=== PATIENT | female | born 1985 | race Caucasian/White ===

== ENCOUNTER → 2019-04-14 | Outpatient (CLI) | payer BC ==
[~2019-04-14] MED LIST: Amoxicillin500 MG PO; BC PILL; CYCL10 PO; HYDACE5325 PO; IBUP600 PO; MULVITMINA PO; Norco 5-325 Ta1 EACH PO; PNV-SELECT TAB1 EACH PO; Peridex480 ML UD; TRAACE PO; Zantac150 MG
== END | disposition home or self-care (01) ==
LOC: LAB 16:18 → LAB SHORT 16:18
DX: O30.009 Twin pregnancy, unspecified number of placenta and unspecified number of amniotic sacs, unspecified trimester (principal)
CPT/HCPCS: 87081; 87653

== ENCOUNTER 2019-04-26 15:20 | Inpatient (IN) | payer BC ==
[~2019-04-26] VITALS: Ht 162.6 cm; Wt 83.1 kg
[~2019-04-26 15:20] MED LIST changes: -PNV-SELECT TAB1 EACH PO; -Zantac150 MG
[2019-04-26 15:51] LABS: BASOPHILS ABSOLUTE AUTO 0.03 K/mm3 (0.00-0.23); BASOPHILS PERCENT AUTO 0 % (0-2); EOSINOPHILS ABSOLUTE AUTO 0.09 K/mm3 (0.00-0.68); EOSINOPHILS PERCENT AUTO 1 % (0-6); Hematocrit 37.8 % (33.0-51.0); Hemoglobin 12.3 g/dL (11.5-16.0); IMMATURE GRAN ABSOLUTE AUTO 0.03 K/mm3 (0.00-0.10); IMMATURE GRAN PERCENT AUTO 0 % (0-1); LYMPHOCYTES ABSOLUTE AUTO 1.78 K/mm3 (0.84-5.20); LYMPHOCYTES PERCENT AUTO 23 % (21-46); MONOCYTES ABSOLUTE AUTO 0.46 K/mm3 (0.16-1.47); MONOCYTES PERCENT AUTO 6 % (4-13); Mean Corpuscular HGB 30.3 pg (26.0-34.0); Mean Corpuscular HGB Conc 32.5 g/dL (31.5-36.5); Mean Corpuscular Volume 93 fL (80-100); Mean Platelet Volume 12.2 fL (9.1-12.4); NEUTROPHILS ABSOLUTE AUTO 5.46 K/mm3 (1.96-9.15); NEUTROPHILS PERCENT AUTO 70 % (41-73); Platelet Count 165 K/mm3 (150-400); RDW Coefficient Variation 18.5 % (11.7-14.2); RDW Standard Deviation 63.2 fL (35.1-46.3); Red Blood Cell Count 4.06 M/mm3 (3.80-5.20); White Blood Cell Count 7.85 K/mm3 (4.00-11.30)
[2019-04-26] MEDS ORDERED: PNV-SELECT TAB1 EACH PO (15:56)
[2019-04-26] MEDS ORDERED: Zantac150 MG (15:57)
[2019-04-27 06:02] LABS: Hematocrit 36.3 % (33.0-51.0); Hemoglobin 11.7 g/dL (11.5-16.0); Mean Corpuscular HGB Conc 32.2 g/dL (31.5-36.5); Mean Corpuscular Volume 93 fL (80-100); Mean Platelet Volume 12.6 fL (9.1-12.4); Platelet Count 136 K/mm3 (150-400); RDW Coefficient Variation 18.4 % (11.7-14.2); RDW Standard Deviation 61.9 fL (35.1-46.3); White Blood Cell Count 14.31 K/mm3 (4.00-11.30)
--- NOTE | 2019-04-27 10:50 | NUR ---
RN in room to assist pt to get baby B to breast. Nb sleepy, placed skin to skin. While there, RN assisted and showed pt how to manually express colostrum. RN noted red tinged colostrum from both breasts. Consulted with BONY, who states it is ok breastfeed. Will continue to monitor.
--- NOTE | 2019-04-27 15:42 | NUR ---
Pt in nursery visiting nb. Pt continuing to have red tinged colostrum from both breast. Lisa Gould RN notified and will consult with pt. Pt reassured that this is ok and is ok to breastfeed.
--- NOTE | 2019-04-27 17:25 | NUR ---
CONSULT. [facility], 1 IN SCN WITH CPAP AND NPO. OTHER BABY IS SLEEPY, BE WAKENED TO BF AND WILL SOMETIMES LATCH WELL. MOM ABLE TO SELF EBM, BLOODY FLUID OBTAINED BOTH SIDES. INSTRUCT IN CHANGES TO EXPECT DURING THE FIRST WEEK WITH FEEDINGS AND WITH BABIES AND REFERRED TO BF BROCHURE AND PAGE 18 OF BF BOOKLET FOR PHOTOS AND INFORMATION. INSTRUCT/DEMO USE OF PUMP AND TO PUMP 8-10X/DAY FOR 20 MINUTES TO STIMULATE MILK PRODUCTION. PUMP AFTER HER BABY HAS BF, AND SAVE MILK FOR HER OTHER BABY. QUESTIONS ANSWERED.
--- NOTE | 2019-04-28 18:10 | NUR ---
PT PUT TO BOARDER STATUS. DISCHARGE INSTRUCTIONS GIVEN. BAORDER STATUS WAS EXPLAINED TO PT AND S/O. NO QUESTIONS OR CONCERNS AT THIS TIME. MEDICATED WITH IBUPROFEN AND TYLENOL A FEW MINUTES BEFORE BEING PUT TO BOARDER. PRESCRIPTIONS HANDED TO PT. FOLLOW UP APPOINTMENT MADE FOR FRIDAY AT 1300 WITH PEG. BANDS MATCHED WITH BABY B.
== END 2019-04-28 17:35 | disposition home or self-care (01) | DRG 807 ==
LOC: OBS 15:20 → BC 15:22 → OBS 15:31 → BC 15:33
PROVIDERS: ADMIT Obstetrics & Gynecology
PROC: 10E0XZZ Delivery of Products of Conception, External Approach (ICD-10-PCS; principal; 2019-04-26)
PROC: 10907ZC Drainage of Amniotic Fluid, Therapeutic from Products of Conception, Via Natural or Artificial Opening (ICD-10-PCS; 2019-04-26)
PROC: 3E0R3BZ Introduction of Anesthetic Agent into Spinal Canal, Percutaneous Approach (ICD-10-PCS; 2019-04-26)
PROC: 0KQM0ZZ Repair Perineum Muscle, Open Approach (ICD-10-PCS; 2019-04-26)
DX: O30.043 Twin pregnancy, dichorionic/diamniotic, third trimester (principal); Z37.2 Twins, both liveborn; Z3A.37 37 weeks gestation of pregnancy; O32.1XX0 Maternal care for breech presentation, not applicable or unspecified; O70.1 Second degree perineal laceration during delivery; O69.81X0 Labor and delivery complicated by cord around neck, without compression, not applicable or unspecified; Z87.891 Personal history of nicotine dependence; Z88.2 Allergy status to sulfonamides
CPT/HCPCS: 36415; 51702; 85025; 85027; 85460; 96372; A9270; J1885; J2001; J2210; J2405; J2590; J2790; J3010; J7120

== ENCOUNTER → 2021-08-08 | Outpatient (CLI) | payer BC ==
[~2021-08-08] MED LIST changes: +PNV-SELECT TAB1 EACH PO; +Zantac150 MG
[2021-08-08 14:51] LABS: Candida species (DNA Probe) Negative (NEGATIVE); G. vaginalis (DNA Probe) Negative (NEGATIVE); T. vaginalis (DNA Probe) Negative (NEGATIVE)
== END ==
LOC: LAB SHORT 10:18 → LAB 10:18
PROVIDERS: Obstetrics & Gynecology
DX: N89.8 Other specified noninflammatory disorders of vagina (principal); Z88.2 Allergy status to sulfonamides
CPT/HCPCS: 87480; 87510; 87660

== ENCOUNTER → 2022-08-16 | Outpatient (CLI) | payer BC ==
[2022-08-29 14:08] LABS: HPV 16 Negative (Negative); HPV 18 Negative (Negative); HPV OTHER HR TYPES Negative (Negative)
== END ==
LOC: LAB SHORT 12:00 → LAB 12:00
PROVIDERS: Obstetrics & Gynecology
DX: Z01.411 Encounter for gynecological examination (general) (routine) with abnormal findings (principal)
CPT/HCPCS: 87624; G0123

== ENCOUNTER → 2023-05-28 | Outpatient (CLI) | payer BC | LOC: LAB SHORT 16:34 → LAB 16:34 | DX: O09.93 Supervision of high risk pregnancy, unspecified, third trimester (principal); Z3A.00 Weeks of gestation of pregnancy not specified | CPT/HCPCS: 87081; 87150 ==

== ENCOUNTER → 2023-06-04 | Outpatient (CLI) | payer BC ==
[2023-06-04 17:10] LABS: Source, Urine Clean Catch
[2023-06-04 18:57] LABS: Appearance, Urine Hazy (Clear); Bilirubin, Urine Neg (Neg); Blood, Urine 3+ (Neg); Color, Urine Yellow (P-Yellow); Glucose Qualitative, Urine Neg (Neg); Ketones, Urine Neg (Neg); Leukocyte Esterase, Urine 2+ (Neg); Nitrite, Urine Neg (Neg); Protein, Urine 1+ (Neg); Specific Gravity, Urine 1.025 (1.003-1.022); Urobilinogen, Urine NORM (Normal)
[2023-06-04 19:13] LABS: Amorphous Mod (0-Heavy); Bacteria Many /hpf; Mucus Light (0-Heavy); Red Blood Cells, Urine 25-50 /hpf (0-2); Squamous Epithelial Cells Many /hpf (Few); Transitional Epithelial Cells Rare /hpf (0-Rare)
== END ==
LOC: LAB 17:04 → LAB SHORT 17:04
PROVIDERS: Advanced Practice Midwife
DX: R31.9 Hematuria, unspecified (principal)
CPT/HCPCS: 81001; 87086